=== PATIENT | female | born 1985 | race Caucasian/White ===

== ENCOUNTER 2018-10-25 05:27 | Inpatient (IN) | payer MEDICAID ==
[2018-10-25] MEDS ORDERED: METHYLERGONOVINE 0.2 MG INJ IM (06:00)
[2018-10-25] MEDS ORDERED: CARBOPROST 250 MCG INJ IM (06:00)
[2018-10-25] MEDS ORDERED: OXYTOCIN 30 UNITS/LR 500 ML IV ×2 (06:00→08:23)
[2018-10-25] MEDS ORDERED: MISOPROSTOL 200 MCG TAB PR ×2 (06:00→08:00)
[2018-10-25 06:16] LABS: ADD MAN DIFF? NO
[2018-10-25 06:19] LABS: BASOPHILS % 0.2 % (0.0-2.0); EOSINOPHILS # 0.1 10^3/ul (0.0-0.5); EOSINOPHILS % 0.9 % (0.0-7.0); HEMATOCRIT 34.3 % (37.0-47.0); HEMOGLOBIN 11.3 g/dl (12.0-16.0); LYMPHOCYTES # 1.7 10^3/ul (0.8-2.9); LYMPHOCYTES % 20.7 % (15.0-51.0); MEAN CORPUSCULAR HEMOGLOBIN 26.5 pg (29.0-33.0); MEAN CORPUSCULAR HGB CONC 32.9 g/dl (32.0-37.0); MEAN CORPUSCULAR VOLUME 80.5 fl (82.0-101.0); MEAN PLATELET VOLUME 10.8 fl (7.4-10.4); MONOCYTE # 0.4 10^3/ul (0.3-0.9); MONOCYTES % 4.9 % (0.0-11.0); NEUTROPHIL # 5.9 10^3/ul (1.6-7.5); NEUTROPHILS % 72.6 % (39.0-77.0); PLATELET COUNT 195 10^3/UL (140-415); RED BLOOD COUNT 4.26 10^6/ul (4.20-5.40); RED CELL DISTRIBUTION WIDTH 14.3 % (11.5-14.5)
[2018-10-25 06:19] LABS: WHITE BLOOD COUNT 8.1 10^3/ul (4.8-10.8)
[2018-10-25 06:39] LABS: INR 0.83; PROTIME 11.5 Sec (11.9-14.9); PT RATIO 0.9
[2018-10-25 06:40] LABS: PARTIAL THROMBOPLASTIN TIME 26.4 Sec (23.0-35.0)
[2018-10-25] MEDS ORDERED: EPHEDrine SULFATE 50 MG/5 ML SYG (07:00)
[2018-10-25 07:17] LABS: HEPATITIS B SURFACE ANTIGEN NEGATIVE (NEGATIVE)
[2018-10-25] MEDS: LACTATED RINGER'S 1,000 ML IV ×5 (07:21→20:21)
[2018-10-25] MEDS: CITRIC ACID/NA CITRATE 30 ML CUP PO (07:34)
[2018-10-25] MEDS: FAMOTIDINE 20 MG INJ IV (07:36)
[2018-10-25] MEDS: METOCLOPRAMIDE 10 MG INJ IV (07:36)
[2018-10-25] MEDS ORDERED: morphine SULFATE/PF (10 MG/10 ML) INJ (07:39)
[2018-10-25] MEDS ORDERED: PHENYLephrine (100 MCG/ML) 5ML SYG (07:51)
[2018-10-25] MEDS ORDERED: ONDANSETRON 4 MG INJ IV ×2 (08:00→09:00)
[2018-10-25] MEDS ORDERED: PROCHLORPERAZINE 10 MG INJ IV (08:00)
[2018-10-25] MEDS ORDERED: MEPERIDINE 25 MG INJ IV (08:00)
[2018-10-25] MEDS ORDERED: KETOROLAC 30 MG INJ IV (08:00)
[2018-10-25] MEDS ORDERED: FENTAnyl 50 MCG/ML VIAL IV ×3 (08:00)
[2018-10-25] MEDS ORDERED: LANOLIN HPA 1 PKT TOP (08:00)
[2018-10-25] MEDS ORDERED: NA PHOSPHATE/BIPHOS 133 ML ENEMA PR (08:00)
[2018-10-25] MEDS ORDERED: HYDROmorphONE 1 MG/5 ML IV SYRINGE IV ×3 (08:00)
[2018-10-25] MEDS ORDERED: ONDANSETRON 4 MG INJ (08:10)
[2018-10-25] MEDS: SENNA/DOCUSATE NA (8.6MG/50MG) TAB PO ×2 (09:00→21:33)
[2018-10-25] MEDS ORDERED: DIPHENHYDRAMINE 50 MG INJ IV (09:00)
[2018-10-25] MEDS ORDERED: NALOXONE (0.4 MG/ML) INJ IV (09:00)
[2018-10-25] MEDS ORDERED: ZOLPIDEM 5 MG TAB PO (09:00)
[2018-10-25] MEDS ORDERED: HYDROmorphONE 0.5 MG/0.5 ML SYG IV (09:00)
[2018-10-25] MEDS ORDERED: NALBUPHINE HCL (10 MG/1 ML) INJ IV (09:00)
[2018-10-25] MEDS: DIPHENHYDRAMINE 50 MG INJ IV (09:27)
[2018-10-25] MEDS: OXYTOCIN 30 UNITS/LR 500 ML IV (09:30)
[2018-10-25] MEDS: CEFAZOLIN 2 GM/50 ML (PMX) 50 ML IVPB (10:08)
[2018-10-25] MEDS: KETOROLAC 30 MG INJ IV ×2 (11:43→17:54)
[2018-10-25] MEDS ORDERED: IBUPROFEN 600 MG TAB PO (12:00)
[2018-10-25 16:46] LABS: RAPID PLASMA REAGIN NONREACTIVE (NR)
[2018-10-25] MEDS: HYDROmorphONE 0.5 MG/0.5 ML SYG IV (21:32)
[2018-10-26] MEDS: KETOROLAC 30 MG INJ IV ×2 (00:20→05:51)
[2018-10-26] MEDS: LACTATED RINGER'S 1,000 ML IV (04:33)
[2018-10-26 08:35] LABS: ADD MAN DIFF? NO
[2018-10-26 08:43] LABS: BASOPHILS % 0.2 % (0.0-2.0); EOSINOPHILS # 0.1 10^3/ul (0.0-0.5); EOSINOPHILS % 0.8 % (0.0-7.0); HEMATOCRIT 32.8 % (37.0-47.0); HEMOGLOBIN 10.5 g/dl (12.0-16.0); LYMPHOCYTES # 1.3 10^3/ul (0.8-2.9); LYMPHOCYTES % 14.7 % (15.0-51.0); MEAN CORPUSCULAR HEMOGLOBIN 26.1 pg (29.0-33.0); MEAN CORPUSCULAR VOLUME 81.4 fl (82.0-101.0); MEAN PLATELET VOLUME 11.1 fl (7.4-10.4); MONOCYTE # 0.4 10^3/ul (0.3-0.9); MONOCYTES % 4.5 % (0.0-11.0); NEUTROPHILS % 79.3 % (39.0-77.0); PLATELET COUNT 194 10^3/UL (140-415); RED BLOOD COUNT 4.03 10^6/ul (4.20-5.40); RED CELL DISTRIBUTION WIDTH 14.6 % (11.5-14.5)
[2018-10-26 08:43] LABS: WHITE BLOOD COUNT 8.8 10^3/ul (4.8-10.8)
[2018-10-26] MEDS: SENNA/DOCUSATE NA (8.6MG/50MG) TAB PO ×2 (09:06→21:18)
[2018-10-26] MEDS: IBUPROFEN 600 MG TAB PO ×3 (11:40→23:46)
[2018-10-26] MEDS: OXYCODONE/ACETAMINOPHEN (5/325) TAB PO ×3 (11:41→21:37)
[2018-10-27] MEDS: IBUPROFEN 600 MG TAB PO ×4 (05:32→23:31)
[2018-10-27] MEDS: SENNA/DOCUSATE NA (8.6MG/50MG) TAB PO ×2 (09:36→21:17)
[2018-10-27] MEDS: DIPHTH/TET/ACEL PERTUSS (ADULT) 0.5 ML VIAL IM* (11:25)
[2018-10-27] MEDS: OXYCODONE/ACETAMINOPHEN (5/325) TAB PO (22:06)
[2018-10-28] MEDS: IBUPROFEN 600 MG TAB PO ×2 (05:36→13:07)
[2018-10-28] MEDS ORDERED: MEASLES,MUMPS,RUBELLA VACCINE INJ SC* (09:00)
[2018-10-28] MEDS: SENNA/DOCUSATE NA (8.6MG/50MG) TAB PO (09:31)
== END 2018-10-28 13:40 | disposition home or self-care (01) | DRG 785 ==
LOC: L-D 05:27 → PP1 11:20
PROVIDERS: Specialist
PROC: 10D00Z1 Extraction of Products of Conception, Low, Open Approach (ICD-10-PCS; principal; 2018-10-25 07:30)
PROC: 0UB70ZZ Excision of Bilateral Fallopian Tubes, Open Approach (ICD-10-PCS; 2018-10-25 07:30)
DX: O34.219 Maternal care for unspecified type scar from previous cesarean delivery (principal); O24.420 Gestational diabetes mellitus in childbirth, diet controlled; Z3A.39 39 weeks gestation of pregnancy; Z37.0 Single live birth; Z30.2 Encounter for sterilization
CPT/HCPCS: 85025; 85610; 85730; 86592; 86850; 86900; 86901; 87340; 88302